=== PATIENT | female | born 1985 | race Caucasian/White ===

== ENCOUNTER 2016-07-20 20:09 | Emergency (ER) | payer MEDICAID ==
[~2016-07-20] VITALS: Ht 162.6 cm; Wt 90.7 kg
[~2016-07-20 20:09] MED LIST: CEFP500T4 PO; CYCL10TA9 PO; DOCU100C37 PO; HYDR-3812 PO; IBUP-1773 PO; NAPR-243 PO; PREN-37 PO
[2016-07-20] MEDS ORDERED: Naproxen (20:29)
[2016-07-20 20:30] LABS: BILIRUBIN,URINE NEGATIVE (NEGATIVE); KETONES,URINE 1+ (NEGATIVE); LEUKOCYTE ESTERASE ,URINE 1+ (NEGATIVE); NITRITE,URINE NEGATIVE (NEGATIVE); PH,URINE 7 (5-9); PROTEIN,URINE NEGATIVE (NEGATIVE); UROBILINOGEN,URINE NORMAL (NORMAL)
[2016-07-20] MEDS ORDERED: KETOROLAC 60 MG/2 ML VIAL IM ONE (21:30)
[2016-07-20] MEDS ORDERED: NITROFURANTOIN 100 MG (MACROBID) CAPSULE PO ONE (21:30)
[2016-07-20] MEDS ORDERED: CYCL10TA9 PO (21:58)
--- NOTE | 2016-07-20 21:59 | ED General ---
General Chief Complaint: General Problems/Pain Stated Complaint: PAIN IN LOWER BACK/HIP BONES/NECK/SHOULDERS Nursing Triage Note: Amb to Ed to report problems with headaches for a couple months then it migrated down to some back pain then into hips. Currently reports dysuria since Saturday. Nursing Sepsis Screen: No Definite Risk Source of Information: Patient Exam Limitations: No Limitations History of Present Illness Time Seen by Provider: 20:15 Initial Comments This 31-year-old woman presents to the emergency room complaining of recurrent headaches for a couple of months and more acutely back ache and dysuria since Saturday. She had been taking naproxen which did help but she hasn't taken any since Saturday. Pain in the back is across the shoulders radiating up into the neck and base of the skull as well as in the lower back radiating into the SI joint regions. She denies any fever. Denies vaginal symptoms or abdominal symptoms. She denies any new or unusual physical activity. 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 Last menstrual period was June 16. Bedside test was negative. Allergies and Home Medications Allergies Coded Allergies: Sulfa (Sulfonamide Antibiotics) (Verified Allergy, Unknown, 11/13/05) penicillin G (Verified Allergy, Unknown, 11/13/05) Home Medications Cyclobenzaprine HCl 10 Mg Tablet, 10 MG PO HS PRN for PAIN-MILD TO MODERATE, #10 Prescribed by: DERICK ROBERTS on 07/20/162157 Nitrofurantoin Monohyd/M-Cryst 100 Mg Capsule, 1 TAB PO BID, #14 Prescribed by: DERICK ROBERTS on 07/20/160 [Naproxen] , (Reported) Constitutional: no symptoms reported EENTM: no symptoms reported Respiratory: no symptoms reported Cardiovascular: no symptoms reported Gastrointestinal: no symptoms reported Genitourinary: see HPI : No Musculoskeletal: see HPI Skin: no symptoms reported Psychiatric/Neurological: See HPI Hematologic/Lymphatic: No Symptoms Reported Past Wobmktd-Rcbwpb-Fphazg Hx Patient Social History Alcohol Use: Occasionally Uses Recreational Drug Use: No Smoking Status: Never a Smoker Former Smoker/When Quit: Mar 28, 2014 Recent Foreign Travel: No Contact w/Someone Who Travel: No Recent Infectious Disease Expo: No Recent Hopitalizations: No Immunizations Up To Date Tetanus Booster (TDap): Unknown PED Vaccines UTD: Yes Seasonal Allergies Seasonal Allergies: Yes Surgeries HX Surgeries: Yes Surgeries: Section, Orthopedic (knee arthroscopy) Respiratory Hx Respiratory Disorders: No Cardiovascular Hx Cardiac Disorders: No Neurological Hx Neurological Disorders: No Reproductive System Hx Reproductive Disorders: No Female Reproductive Disorders: Denies Genitourinary Hx Genitourinary Disorders: No Gastrointestinal Hx Gastrointestinal Disorders: No Musculoskeletal Hx Musculoskeletal Disorders: No Endocrine Hx Endocrine Disorders: No HEENT HX ENT Disorders: No Cancer Hx Cancer: No Psychosocial Hx Psychiatric Problems: No Integumentary HX Skin/Integumentary Disorder: No Blood Transfusions Hx Blood Disorders: No Adverse Reaction to a Blood Tr: No Family Medical History Significant Family History: No Pertinent Family Hx Family Medial History: Arthritis 19 MOTHER Hypertension 19 MOTHER Physical Exam Vital Signs Vital Sign - Last 12Hours 07/20/16 20:13 Temp 98.2 Pulse 110 Resp 20 B/P (MAP) 124/79 Pulse Ox 98 O2 Delivery Room Air Capillary Refill : Less Than 3 Seconds General Appearance: No Apparent Distress, WD/WN HEENT: PERRL/EOMI, Normal ENT Inspection, Pharynx Normal Neck: Normal Inspection, Other (bilateral posterior muscle tension and tenderness) Respiratory: Lungs Clear, Normal Breath Sounds, No Accessory Muscle Use, No Respiratory Distress Cardiovascular: Regular Rate, Rhythm, No Edema, No Murmur Gastrointestinal: Normal Bowel Sounds, Soft, Tenderness (mild in the suprapubic region) Extremity: Normal Inspection, No Pedal Edema Neurologic/Psychiatric: Alert, Oriented x3, No Motor/Sensory Deficits, Normal Mood/Affect, wage conciliator II-XII Norm as Tested Skin: Normal Color, Warm/Dry Progress/Results/Core Measures Results/Orders Lab Results Laboratory Tests Test 07/20/16 20:22 Range/Units Urine Color YELLOW Urine Clarity CLEAR Urine pH 7 5-9 Urine Specific [place] 1.010 L 1.016-1.022 Urine Protein NEGATIVE NEGATIVE Urine Glucose (UA) NEGATIVE NEGATIVE Urine Ketones 1+ H NEGATIVE Urine Nitrite NEGATIVE NEGATIVE Urine Bilirubin NEGATIVE NEGATIVE Urine Urobilinogen NORMAL NORMAL MG/DL Urine Leukocyte Esterase 1+ H NEGATIVE Urine RBC (Auto) NEGATIVE NEGATIVE Urine RBC NONE /HPF Urine WBC 2-5 /HPF Urine Squamous Epithelial Cells 5-10 /HPF Urine Crystals NONE /LPF Urine Bacteria FEW H /HPF Urine Casts NONE /LPF Urine Mucus NEGATIVE /LPF Urine Culture Indicated NO My Orders Orders - DERICK HAYWOOD MD Ua Culture If Indicated (07/20/16 20:21) Urine Bedside (07/20/16 20:21) Ketorolac Injection (Toradol Injection) (07/20/16 21:30) Nitrofurantoin Capsule,Macro (Macrobid C (07/20/16 21:30) Urine Culture (07/20/16 21:55) Medications Given in ED Current Medications Medications Dose Ordered Sig/[place] Route Start Time Stop Time Status Last Admin Dose Admin Ketorolac Tromethamine 60 mg ONCE ONCE IM 07/20/16 21:30 07/20/16 21:31 DC 07/20/16 21:30 60 MG Nitrofurantoin Macrocrystals 100 mg ONCE ONCE PO 07/20/16 21:30 07/20/16 21:31 DC 07/20/16 21:29 100 MG Vital Signs/I&O Vital Sign - Last 12Hours 07/20/16 07/20/16 07/20/16 20:13 21:30 22:02 Temp 98.2 98.2 98.2 Pulse 110 90 Resp 20 20 B/P (MAP) 124/79 Pulse Ox 98 98 O2 Delivery Room Air Blood Pressure Mean: 94 Point of Care Testing Urine -Bedside: Negative Progress Note : Progress Note UA showed subtle suggestion of urinary tract infection. Patient was treated with Macrobid. Options were discussed for further workup versus treatment alone for her musculoskeletal complaints. Patient would like to try Toradol. Toradol was administered and didn't improve her symptoms. Discharge instructions were discussed. Departure Impression Impression: Primary Impression: Urinary tract infection Qualified Codes: N39.0 - Urinary tract infection, site not specified Additional Impressions: Backache Qualified Codes: M54.5 - Low back pain Tension headache Disposition: HOME, SELF-CARE Condition: Improved Departure-Patient Inst. Decision time for Depature: 21:56 Referrals: BUDDY SPENCER DO (PCP/Family) Primary Care Physician Patient Instructions: Urinary Tract Infection, Adult (DC) Add. Discharge Instructions: Drink plenty of clear liquids. Complete your antibiotic as prescribed. For pain and muscle tension take naproxen up to 500 mg twice daily as long as the pain lasts. Add Tylenol (acetaminophen) up to 1000 mg every 6 hours as needed for additional pain relief. Return to the ER if symptoms worsen. Follow up with your primary care provider if symptoms are not improving by early next week. You may use the cyclobenzaprine as prescribed for muscle relaxation at bedtime. All discharge instructions reviewed with patient and/or family. Voiced understanding. Scripts Nitrofurantoin Monohyd/M-Cryst (Macrobid 100 mg Capsule) 100 Mg Capsule 1 TAB PO BID, #14 CAP Prov: DERICK HAYWOOD MD 07/20/16 Cyclobenzaprine HCl (Cyclobenzaprine HCl) 10 Mg Tablet 10 MG PO HS Y for PAIN-MILD TO MODERATE, #10 TAB Prov: DERICK HAYWOOD MD 07/20/16 DERICK HAYWOOD MD July 20, 2016 21:59
[2016-07-20] MEDS ORDERED: NITR-65 PO (22:00)
[2016-07-20 22:02] VITALS: BP 124/79
== END 2016-07-20 22:02 | disposition home or self-care (01) ==
LOC: EDUNIT# 20:09 → ER 20:11
DX: N39.0 Urinary tract infection, site not specified (principal); M54.5 Low back pain; G44.209 Tension-type headache, unspecified, not intractable
CPT/HCPCS: 81000; 84703; 87077; 87088; 87186; 96372; 99282

== ENCOUNTER 2018-03-17 23:49 | Emergency (ER) | payer SELFPAY ==
[~2018-03-17] VITALS: Ht 162.6 cm; Wt 90.7 kg
[~2018-03-17 23:49] MED LIST changes: +ACHD5005 PO; -HYDR-3812 PO; +NITR-65 PO; +Naproxen
--- OUTSIDE RECORDS SUMMARY | 2018-03-17 23:56 | XMS REPORT ---
Author Author ALEXANDRIA FOX [facility] Address [address] [place] [address] Care Team Providers Care Panel Beater Name Role Phone FOX, ALEXANDRIA Unavailable PROBLEMS Type Condition ICD9-CM Code [id number] Code Onset Dates Condition Status SNOMED Code Problem Endometriosis of uterus 617.0 Active 60761850 Problem Excessive or frequent menstruation 626.2 Active 491841394 ALLERGIES Substance Reaction Event Type Date Status Penicillin Unknown Drug Allergy Sep, Active Sulfa Drugs Unknown Non Drug Allergy Sep, Active ENCOUNTERS Encounter Location Date Diagnosis [id number], [place] [id number] Sep, Dental caries K02.9 [address] [id number] Sep, [place] [id number] [place] [id number] Sep, Dental examination Z01.[address] [id number] [id number] Feb, Dental examination Z01.20 [id number] [id number] June, test performed, confirmed V72.42 [facility] [id number], [place] [address] May, [facility] [address] [id number] [place] [address] May, [facility] [id number], [place] [address] Dec, [facility] [id number] [place] [address] Dec, [facility] [id number], [place] [address] Nov, [facility] [id number], [place] [address] Nov, [facility] [id number], [place] [address] 16 Oct, 2013 [facility] [id number], [place] [address] 16 Oct, 2013 [facility] [id number], [place] [address] 15 Oct, 2013 [facility] [id number], [place] [address] 15 Oct, 2013 [facility] [id number], [place] [address] Oct, [facility] [address], [place] [address] 04 Oct, 2013 [facility] [id number], [place] [address] 02 Oct, 2013 [facility] [id number] [address] Oct, IMMUNIZATIONS No Known Immunizations SOCIAL HISTORY Never Assessed REASON FOR VISIT extraction PLAN OF CARE Activity Details Follow Up prn Reason:eliazar/hygiene VITAL SIGNS Height 64 in 2016-10-22 Blood pressure systolic 115 mmHg 2016-10-22 Blood pressure diastolic 68 mmHg 2016-10-22 MEDICATIONS No Known Medications RESULTS No Results PROCEDURES Procedure Date Ordered Result Body Site EXTRAC ERUPTED TOOTH/EXPOSED ROOT Oct 22, 2016 INSTRUCTIONS MEDICATIONS ADMINISTERED No Known Medications MEDICAL (GENERAL) HISTORY Type Description Date Surgical History c section 02/08/15 Hospitalization History csection 02/08/15
--- OUTSIDE RECORDS SUMMARY | 2018-03-17 23:56 | XMS REPORT | Continuity of Care Document ---
Author Author [facility] Address Unknown Phone Unavailable Allergies Active Description Code Type Severity Reaction Onset Reported/Identified Relationship to Patient Clinical Status Yes penicillin G [id number] Drug Allergy Unknown N/A 11/13/2005 Yes Sulfa (Sulfonamide Antibiotics) [id number] Drug Allergy Unknown N/A 2005 Medications There is no data. Problems Date Dx Coded Attending Type Code Diagnosis Diagnosed By 09/07/2012 LORETA RUIZ DO Ot 465.9 ACUTE URI NOS 09/07/2012 LORETA RUIZ DO Ot 490 BRONCHITIS NOS 09/07/2012 LORETA RUIZ DO Ot 786.2 COUGH 06/21/2013 LORETA RUIZ DO Ot 847.0 SPRAIN OF NECK 06/21/2013 LORETA RUIZ DO Ot 920 CONTUSION FACE/SCALP/NCK 06/21/2013 LORETA RUIZ DO Ot 959.01 HEAD INJURY, NOS 06/21/2013 LORETA RUIZ DO Ot E000.8 OTHER EXTERNAL CAUSE STATUS 06/21/2013 LORETA RUIZ DO Ot E849.[address] NEC 06/21/2013 LORETA RUIZ DO Ot E908.1 TORNADO 10/27/2013 BERNARDO ARAMBULA MD 626.2 EXCESSIVE OR FREQUENT MENSTRUATION 10/27/2013 MARCELO ABRAMS DDS 626.2 EXCESSIVE OR FREQUENT MENSTRUATION 10/27/2013 BERNARDO ARAMBULA MD 626.2 EXCESSIVE OR FREQUENT MENSTRUATION 01/05/2014 BERNARDO ARAMBULA MD 617.0 ENDOMETRIOSIS OF UTERUS 06/04/2014 BERNARDO ARAMBULA MD Ot 625.9 06/04/2014 BERNARDO ARAMBULA MD Ot 626.2 07/06/2014 BERNARDO ARAMBULA MD Ot 625.9 07/06/2014 BERNARDO ARAMBULA MD Ot 626.2 07/16/2014 TYESHA BRUSH, BERNARDO Barba Ot 625.9 07/16/2014 BERNARDO ARAMBULA MD Ot 626.2 02/03/2015 BERNARDO ARAMBULA MD Ot 625.9 02/03/2015 BERNARDO ARAMBULA MD Ot 626.2 02/07/2015 YUDITH WEEKS DO Ot O34.21 02/07/2015 YUDITH WEEKS DO Ot Z01.818 02/07/2015 YUDITH WEEKS DO Ot Z3A.00 02/11/2015 YUDITH WEEKS DO Ot D62 ACUTE POSTHEMORRHAGIC ANEMIA 02/11/2015 YUDITH WEEKS DO Ot O34.21 MATERNAL CARE FOR SCAR FROM PREVIOUS [place] 02/11/2015 YUDITH WEEKS DO Ot O90.81 ANEMIA OF THE PUERPERIUM 02/11/2015 YUDITH WEEKS DO Ot Z23 ENCOUNTER FOR IMMUNIZATION 02/11/2015 YUDITH WEEKS DO Ot Z37.0 SINGLE LIVE 02/11/2015 YUDITH WEEKS DO Ot Z3A.39 39 WEEKS GESTATION OF 07/20/2016 TYESHA BRUSH, BERNARDO Barba Ot 625.9 FEM GENITAL SYMPTOMS NOS 07/20/2016 TYESHA BRUSH, BERNARDO Barba Ot 626.2 EXCESSIVE MENSTRUATION 07/20/2016 YUDITH WEEKS DO Ot O34.21 MATERNAL CARE FOR SCAR FROM PREVIOUS [place] 07/20/2016 YUDITH WEEKS DO Ot Z01.818 ENCOUNTER FOR OTHER PREPROCEDURAL EXAMIN 07/20/2016 YUDITH WEEKS DO Ot Z3A.00 WEEKS OF GESTATION OF NOT SPEC 07/20/2016 YOBANY BRUSH, DERICK Pandya Ot G44.209 TENSION-TYPE HEADACHE, UNSPECIFIED, NOT 07/20/2016 DERICK HAYWOOD MD, Ot M54.5 LOW BACK PAIN 07/20/2016 DERICK HAYWOOD MD, Ot N39.0 URINARY TRACT INFECTION, SITE NOT SPECIF Procedures Code [place] [address] ROUTINE VENIPUNCTURE 10/27/2013 71996 US PELVIC COMPL (REFLEX CPT - 68832) 10/27/2013 26662 TSH 10/27/2013 48918 CBC 10/27/2013 20391 A1C (IN-HOUSE) 10/27/2013 OBSTETRIC YUDITH WEEKS 01/05/2014 26G89G8 EXTRACTION OF POC, LOW CERVICAL, OPEN AP 02/08/2015 Results Test Result Range Complete urinalysis with reflex to culture - 07/20/16 20:22 Urine color determination YELLOW NRG Urine clarity determination CLEAR NRG Urine pH measurement by test strip 7 5-9 Specific gravity of urine by test strip 1.010 1.016- 1.022 Urine protein assay by test strip, semi-quantitative NEGATIVE NEGATIVE Urine glucose detection by automated test strip NEGATIVE NEGATIVE Erythrocytes detection in urine sediment by light microscopy NEGATIVE NEGATIVE Urine ketones detection by automated test strip 1+ NEGATIVE Urine nitrite detection by test strip NEGATIVE NEGATIVE Urine total bilirubin detection by test strip NEGATIVE NEGATIVE Urine urobilinogen measurement by automated test strip (mass/volume) NORMAL NORMAL Urine leukocyte esterase detection by dipstick 1+ NEGATIVE Automated urine sediment erythrocyte count by microscopy (number/high power field) NONE NRG Automated urine sediment leukocyte count by microscopy (number/high power field ) [HPF] NRG Bacteria detection in urine sediment by light microscopy FEW NRG Squamous epithelial cells detection in urine sediment by light microscopy 5-10 NRG Crystals detection in urine sediment by light microscopy NONE NRG Casts detection in urine sediment by light microscopy NONE NRG Mucus detection in urine sediment by light microscopy NEGATIVE NRG Complete urinalysis with reflex to culture NO NRG Bacterial urine culture - 07/20/16 20:22 Bacterial urine culture [id number] NRG COLONY COUNT 10,000/ML - 100,000/ML NRG FTX;REPORTABLE SENSITIVITY REPORTED 07/22/16 11:30 NRG Bacterial susceptibility panel - 07/20/16 20:22 Gentamicin susceptibility test by minimum inhibitory concentration < = NRG Trimethoprim/sulfamethoxazole susceptibility test by minimum inhibitoryconcentration <= NRG Ampicillin susceptibility test by minimum inhibitory concentration > = NRG Tobramycin susceptibility test by minimum inhibitory concentration < = NRG Cefazolin susceptibility test by minimum inhibitory concentration < = NRG Ceftriaxone susceptibility test by minimum inhibitory concentration <= NRG Ampicillin/sulbactam susceptibility test by minimum inhibitory concentration >= NRG Ciprofloxacin susceptibility test by minimum inhibitory concentration 0.5 NRG Meropenem susceptibility test by minimum inhibitory concentration < = NRG Nitrofurantoin susceptibility test by minimum inhibitory concentration <= NRG Aztreonam susceptibility test by minimum inhibitory concentration < = NRG Extended spectrum beta lactamase (ESBL) producing bacteria susceptibility test by minimum inhibitory concentration - NRG Encounters ACCT No. Visit Date/Time Discharge Status Pt. Type Provider Facility Loc./Unit Complaint [id number] 01/05/2014 09:42:00 01/05/2014 23:59:59 CLS Outpatient BERNARDO ARAMBULA MD [id number] 11/25/2013 08:23:00 11/25/2013 23:59:59 CLS Outpatient MARCELO ABRAMS DDS [id number] 10/27/2013 09:19:00 10/27/2013 23:59:59 CLS Outpatient BERNARDO ARAMBULA MD [id number] 03/06/2017 11:14:00 03/06/2017 23:59:59 CLS Preadmit LARISSA HERBERT DO [facility] RAD Z33.1 [id number] 07/20/2016 20:11:00 07/20/2016 22:02:00 DIS Emergency DERICK HAYWOOD MD [facility] ER PAIN IN LOWER BACK/ HIP BONES/NECK/SHOULDERS [id number] 04/25/2015 13:16:00 04/25/2015 23:59:59 CLS Outpatient JADE CALLOWAY [facility] QUICK [id number] 02/08/2015 07:33:00 02/11/2015 16:10:00 DIS Inpatient YUDITH WEEKS DO [facility] LDRP PREVIOUS SECTION [id number] 02/03/2015 09:15:00 02/03/2015 23:59:59 CLS Outpatient YUDITH WEEKS DO [facility] PREOP PREVIOUS SECTION [id number] 11/03/2013 11:21:00 11/03/2013 23:59:59 CLS Outpatient BERNARDO ARAMBULA MD [facility] RAD PELVIC PAIN,IRREGULAR PERIODS [id number] 06/21/2013 21:24:00 06/21/2013 22:46:00 DIS Emergency LORETA RUIZ DO [facility] ER HEAD INJ;TORNADO VICTIM [id number] 09/07/2012 12:16:00 09/07/2012 15:36:00 DIS Emergency LORETA RUIZ DO [facility] ER UPPER RESPIRATORY
[2018-03-18] MEDS ORDERED: RX-ALBUTEROL INHALER (PROAIR) 8 GM IH STA (00:54)
[2018-03-18] MEDS ORDERED: PRD20T PO (01:23)
--- NOTE | 2018-03-18 01:24 | ED Respiratory ---
General Chief Complaint: Cough/Cold/Flu Symptoms Stated Complaint: CONGESTION,COUGH Nursing Triage Note: AMBULATORY TO ED WITH C/O COUGH FOR A COUPLE OF WEEKS, TROUBLE BREATHING, WHEEZING. C/O HEADACHE. USE OF OTC MUCINEX. Source: patient Exam Limitations: no limitations History of Present Illness Date Seen by Provider: Mar 18, 2018 Time Seen by Provider: 00:45 Initial Comments Patient presents with dry cough, chest congestion, and discomfort with breathing for couple of weeks. She is not febrile. She has not yet been seen for this problem. Allergies and Home Medications Allergies Coded Allergies: Sulfa (Sulfonamide Antibiotics) (Verified Allergy, Unknown, 11/13/05) penicillin G (Verified Allergy, Unknown, 11/13/05) Home Medications Prednisone 20 Mg Tab, 1 TAB PO DAILY Prescribed by: DERICK ROBERTS on 03/18/18 0123 Patient Home Medication List Home Medication List Reviewed: Yes Review of Systems Review of Systems Constitutional: no symptoms reported EENTM: no symptoms reported Respiratory: see HPI Cardiovascular: no symptoms reported Gastrointestinal: no symptoms reported Genitourinary: no symptoms reported Musculoskeletal: no symptoms reported Skin: no symptoms reported Psychiatric/Neurological: No Symptoms Reported Hematologic/Lymphatic: No Symptoms Reported Past Gqskrmq-Zvbrwm-Glcovx Hx Patient Social History Alcohol Use: Occasionally Uses Recreational Drug Use: No Smoking Status: Former Smoker Recent Foreign Travel: No Contact w/Someone Who Travel: No Recent Infectious Disease Expo: No Recent Hopitalizations: No Immunizations Up To Date Tetanus Booster (TDap): Unknown PED Vaccines UTD: Yes Seasonal Allergies Seasonal Allergies: Yes Past Medical History Surgeries: Yes ( x 3; knee scope,sinus) Section, Orthopedic Respiratory: No Cardiac: No Neurological: No Reproductive Disorders: No Female Reproductive Disorders: Denies Genitourinary: No Gastrointestinal: No Musculoskeletal: No Endocrine: No HEENT: No Cancer: No Psychosocial: No Integumentary: No Blood Disorders: No Adverse Reaction/Blood Tranf: No Family Medical History Arthritis 19 MOTHER Hypertension 19 MOTHER No Pertinent Family Hx Physical Exam Vital Signs - First Documented 03/18/18 03/18/18 00:23 01:35 Temp 99.6 Pulse 102 Resp 22 B/P (MAP) 119/69 (86) Pulse Ox 99 O2 Delivery Room Air Capillary Refill : Less Than 3 Seconds Height: 5'4.00" Weight: 200lbs. oz. 90.284442yi; 35.01 BMI Method:Stated General Appearance: WD/WN, no apparent distress HEENT: PERRL/EOMI, normal ENT inspection Neck: normal inspection Respiratory: no respiratory distress, no accessory muscle use, wheezing, other (wheezing and prolonged expiratory phase with forced expiration) Cardiovascular: regular rate, rhythm, no edema, no murmur Extremities: normal inspection, no pedal edema Neurologic/Psychiatric: ladle puller II-XII nml as tested, no motor/sensory deficits, alert, normal mood/affect, oriented x 3 Skin: normal color, warm/dry Progress/Results/Core Measures Suspected Sepsis Recent Fever Within 48 Hours: Yes Infection Criteria Present: Suspected New Infection New/Unexplained Altered Menta: No Sepsis Screen: Possible Sepsis Risk SIRS Temperature:99.6 Pulse: 102 Respiratory Rate: 22 Blood Pressure 119 /69 Mean: 86 Results/Orders My Orders Orders - DERICK HAYWOOD MD Rx-Albuterol Inhaler (Rx-Proair) (03/18/18 00:54) Rt Request For Service (03/18/18 00:54) Vital Signs/I&O 03/18/18 03/18/18 03/18/18 03/18/18 00:23 00:23 01:23 01:35 Temp 99.6 99.6 Pulse 102 99 Resp 22 B/P (MAP) 119/69 (86) 120/70 (87) Pulse Ox 99 O2 Delivery Room Air Room Air Room Air Capillary Refill : Less Than 3 Seconds Blood Pressure Mean: 86 Progress Note : Progress Note Albuterol inhaler was dispensed and RT provided education and a spacer. Prednisone was prescribed for further treatment of bronchitis. Patient was offered chest x-ray but declined due to lack of insurance. Departure Impression Primary Impression: Acute bronchitis Qualified Codes: J20.9 - Acute bronchitis, unspecified Disposition: HOME, SELF-CARE Condition: Improved Departure-Patient Inst. Decision time for Depature: 00:50 Referrals: NO,LOCAL PHYSICIAN (PCP/Family) Primary Care Physician Patient Instructions: Acute Bronchitis, Adult (DC) Add. Discharge Instructions: Use your inhaler up to 2 puffs every 2 hours as needed for shortness of breath and wheezing. Complete your prednisone prescription as prescribed. Follow-up with your primary care provider if not improving by the time that your prednisone course is complete. Return to care if you have worsening symptoms. Avoid any inhaled irritants such as cigarette smoke. All discharge instructions reviewed with patient and/or family. Voiced understanding. Scripts Prednisone (Prednisone) 20 Mg Tab 1 TAB PO DAILY, #5 TAB Prov: DERICK HAYWOOD MD 03/18/18 DERICK HAYWOOD MD Mar 18, 2018 01:23
[2018-03-18 01:35] VITALS: BP 120/70
== END 2018-03-18 01:37 | disposition home or self-care (01) ==
LOC: EDUNIT# 23:49 → ER 23:52
DX: J20.9 Acute bronchitis, unspecified (principal); Z88.0 Allergy status to penicillin; Z88.2 Allergy status to sulfonamides; Z79.52 Long term (current) use of systemic steroids; Z87.891 Personal history of nicotine dependence; Z98.890 Other specified postprocedural states
CPT/HCPCS: 94640; 94664; 99283

== ENCOUNTER 2022-04-17 23:04 | Emergency (ER) | payer SELFPAY ==
[~2022-04-17] VITALS: Ht 162.5 cm; Wt 99.7 kg
[~2022-04-17 23:04] MED LIST changes: +CYCL10TA25 PO; +PRD20T PO
[2022-04-17] MEDS ORDERED: NITROGLYCERIN 0.4 MG SL TABS BTL 25'S SL PRN (23:30)
[2022-04-17] MEDS ORDERED: ASPIRIN 81 MG CHEW (CHILDREN'S ASA) PO ONE (23:30)
--- NOTE | 2022-04-17 23:31 | ED Chest Pain ---
General Chief Complaint: Chest Pain Stated Complaint: CP Source: patient History of Present Illness Date Seen by Provider: Apr 17, 2022 Time Seen by Provider: 23:15 Initial Comments PT ARRIVES VIA POV FROM HOME C/O CHEST PAIN SINCE SHE GOT OFF WORK AT [employer] ( WORKS A [employer]) PAIN IS IN CENTER AND JUST LEFT OF CENTER OF CHEST, RADIATES TO LEFT SHOULDER AND UPPER BACK PAIN IS 10/10 AT WORST, 4/10 NOW WHILE LAYING STILL WORSE WITH ANY MOVEMENTS OF ANY KIND, ESPECIALLY RAISING LEFT ARM + SHORTNESS OF BREATH Allergies and Home Medications Allergies Coded Allergies: Sulfa (Sulfonamide Antibiotics) (Verified Allergy, Unknown, 11/13/05) penicillin G (Verified Allergy, Unknown, 11/13/05) Patient Home Medication List Prednisone (Prednisone) 20 Mg Tab, 1 TAB PO DAILY Prescribed by: DERICK ROBERTS on 03/18/18 0123 Past Kdegvou-Kfkedj-Ovtera Hx Immunizations Up To Date Tetanus Booster (TDap): Unknown PED Vaccines UTD: Yes Seasonal Allergies Seasonal Allergies: Yes Past Medical History Surgeries: Yes ( x 3; knee scope,sinus) Section, Orthopedic Respiratory: No Cardiac: No Neurological: No Reproductive Disorders: No Female Reproductive Disorders: Denies Genitourinary: No Gastrointestinal: No Musculoskeletal: No Endocrine: No HEENT: No Cancer: No Psychosocial: No Integumentary: No Blood Disorders: No Adverse Reaction/Blood Tranf: No Family Medical History Arthritis 19 MOTHER Hypertension 19 MOTHER No Pertinent Family Hx Physical Exam Vital Signs Vital Signs - First Documented 04/17/22 23:11 Temp 36.8 Pulse 96 Resp 8 B/P (MAP) 117/82 (94) Pulse Ox 98 O2 Delivery Room Air Capillary Refill : Height, Weight, BMI Height: 5'4.00" Weight: 200lbs. oz. 90.484360hg; 35.01 BMI Method:Stated Progress/Results/Core Measures Results/Orders Lab Results Laboratory Tests Test 04/17/22 23:32 04/17/22 23:35 04/17/22 23:38 04/17/22 23:50 Range/Units Sodium Level 139 135-145 MMOL/L Potassium Level 3.8 3.6-5.0 MMOL/L Chloride Level 106 98-107 MMOL/L Carbon Dioxide Level 19 L 21-32 MMOL/L Anion Gap 14 5-14 MMOL/L Blood Urea Nitrogen 10 7-18 MG/DL Creatinine 0.81 0.60-1.30 MG/DL Estimat Glomerular Filtration Rate 97 BUN/Creatinine Ratio 12 Glucose Level 92 70-105 MG/DL Calcium Level 9.4 8.5-10.1 MG/DL Corrected Calcium 9.3 8.5-10.1 MG/DL Magnesium Level 2.2 1.6-2.4 MG/DL Total Bilirubin 0.6 0.1-1.0 MG/DL Aspartate Amino Transf (AST/SGOT) 19 5-34 U/L Alanine Aminotransferase (ALT/SGPT) 21 0-55 U/L Alkaline Phosphatase 100 40-136 U/L Total Creatine Kinase 80 29-168 U/L Creatine Kinase MB 0.8 <6.6 NG/ML Myoglobin 28.0 10.0-92.0 NG/ML Troponin I < 0.028 <0.028 NG/ML C-Reactive Protein High Sensitivity 4.13 H 0.00-0.50 MG/DL Total Protein 7.3 6.4-8.2 GM/DL Albumin 4.1 3.2-4.5 GM/DL Amylase Level 52 25-125 U/L Lipase 17 8-78 U/L Influenza Type A (RT-PCR) Not Detected Not Detecte Influenza Type B (RT-PCR) Not Detected Not Detecte SARS-CoV-2 RNA (RT-PCR) Not Detected Not Detecte Urine Color YELLOW Urine Clarity CLEAR Urine pH 6.0 5-9 Urine Specific [place] 1.010 L 1.016-1.022 Urine Protein NEGATIVE NEGATIVE Urine Glucose (UA) NEGATIVE NEGATIVE Urine Ketones NEGATIVE NEGATIVE Urine Nitrite NEGATIVE NEGATIVE Urine Bilirubin NEGATIVE NEGATIVE Urine Urobilinogen 0.2 < = 1.0 MG/DL Urine Leukocyte Esterase NEGATIVE NEGATIVE Urine RBC (Auto) NEGATIVE NEGATIVE Urine RBC NONE /HPF Urine WBC NONE /HPF Urine Squamous Epithelial Cells 5-10 /HPF Urine Crystals NONE /LPF Urine Bacteria NEGATIVE /HPF Urine Casts NONE /LPF Urine Mucus NEGATIVE /LPF Urine Culture Indicated NO White Blood Count 8.9 4.3-11.0 10^3/uL Red Blood Count 4.45 3.80-5.11 10^6/uL Hemoglobin 13.5 11.5-16.0 g/dL Hematocrit 39 35-52 % Mean Corpuscular Volume 88 80-99 fL Mean Corpuscular Hemoglobin 30 25-34 pg Mean Corpuscular Hemoglobin Concent 34 32-36 g/dL Red Cell Distribution Width 12.5 10.0-14.5 % Platelet Count 259 130-400 10^3/uL Mean Platelet Volume 10.1 9.0-12.2 fL Immature Granulocyte % (Auto) 0 % Neutrophils (%) (Auto) 61 42-75 % Lymphocytes (%) (Auto) 27 12-44 % Monocytes (%) (Auto) 9 0-12 % Eosinophils (%) (Auto) 3 0-10 % Basophils (%) (Auto) 1 0-10 % Neutrophils # (Auto) 5.4 1.8-7.8 10^3/uL Lymphocytes # (Auto) 2.4 1.0-4.0 10^3/uL Monocytes # (Auto) 0.8 0.0-1.0 10^3/uL Eosinophils # (Auto) 0.3 0.0-0.3 10^3/uL Basophils # (Auto) 0.0 0.0-0.1 10^3/uL Immature Granulocyte # (Auto) 0.0 0.0-0.1 10^3/uL Erythrocyte Sedimentation Rate 16 0-20 MM/HR Prothrombin Time 12.5 12.2-14.7 SEC INR Comment 0.9 0.8-1.4 Activated Partial Thromboplast Time 29 24-35 SEC D-Dimer 1.10 H 0.00-0.49 UG/ML Serum Test, Qualitative NEGATIVE NEGATIVE My Orders Orders - LORETA RUIZ DO Ed Iv/Invasive Line Start (04/17/22 23:19) Ekg Tracing (04/17/22 23:19) O2 (04/17/22 23:19) Monitor-Rhythm Ecg Trace Only (04/17/22 23:19) Amylase (04/17/22 23:19) Cbc With Automated Diff (04/17/22 23:19) Comprehensive Metabolic Panel (04/17/22 23:19) Creatine Kinase (04/17/22 23:19) Creatine Kinase Mb (04/17/22 23:19) Hs C Reactive Protein (04/17/22 23:19) Fibrin Degradation Products (04/17/22 23:19) Hcg,Qualitative Serum (04/17/22 23:19) Lipase (04/17/22 23:19) Magnesium (04/17/22 23:19) Protime With Inr (04/17/22 23:19) Partial Thromboplastin Time (04/17/22 23:19) Ua Culture If Indicated (04/17/22 23:19) Erythrocyte Sedimentation Rate (04/17/22 23:19) Myoglobin Serum (04/17/22 23:19) Troponin I Foster (04/17/22 23:19) Chest 1 View, Ap/Pa Only (04/17/22 23:19) Ed Iv/Invasive Line Start (04/17/22 23:19) Nitroglycerin 0.4 Mg Btl 25's (Nitrostat (04/17/22 23:30) Aspirin Chewable Tablet (Baby Aspirin Ch (04/17/22 23:30) Covid 19 Inhouse Test (04/17/22 23:27) Influenza A And B By Pcr (04/17/22 23:27) Isolation Central Supply Req (04/17/22 23:27) Ct Maritza Chest/Noang Abd-Pelv W (04/18/22 00:44) Medications Given in ED Current Medications Medications Dose Ordered Sig/[place] Route Start Time Stop Time Status Last Admin Dose Admin Aspirin 324 mg ONCE ONCE PO 04/17/22 23:30 04/17/22 23:31 DC 04/17/22 23:31 324 MG Nitroglycerin 0.4 mg UD PRN SL 04/17/22 23:30 04/17/22 23:31 0.4 MG Vital Signs/I&O 04/17/22 23:11 Temp 36.8 Pulse 96 Resp 8 B/P (MAP) 117/82 (94) Pulse Ox 98 O2 Delivery Room Air Progress Progress Note : Progress Note PPE WORN COVID AND FLU TESTING DONE GIVEN: -IV FLUIDS -ASPIRIN Departure Departure-Patient Inst. Referrals: NO,LOCAL PHYSICIAN (PCP/Family) Primary Care Physician LORETA RUIZ DO Apr 17, 2022 23:31
[2022-04-17 23:47] LABS: BILIRUBIN,URINE NEGATIVE (NEGATIVE); CLARITY,URINE CLEAR; COLOR,URINE YELLOW; GLUCOSE, URINE (UA) NEGATIVE (NEGATIVE); KETONES,URINE NEGATIVE (NEGATIVE); LEUKOCYTE ESTERASE ,URINE NEGATIVE (NEGATIVE); NITRITE,URINE NEGATIVE (NEGATIVE); PROTEIN,URINE NEGATIVE (NEGATIVE)
[2022-04-18 00:12] LABS: BASOPHILS % (AUTO) 1 % (0-10); EOSINOPHILS # (AUTO) 0.3 10^3/uL (0.0-0.3); EOSINOPHILS % (AUTO) 3 % (0-10); HEMATOCRIT 39 % (35-52); HEMOGLOBIN 13.5 g/dL (11.5-16.0); LYMPHOCYTES # (AUTO) 2.4 10^3/uL (1.0-4.0); LYMPHOCYTES % (AUTO) 27 % (12-44); MEAN CORPUSCULAR HEMOGLOBIN 30 pg (25-34); MEAN CORPUSCULAR HGB CONC 34 g/dL (32-36); MEAN CORPUSCULAR VOLUME 88 fL (80-99); MEAN PLATELET VOLUME 10.1 fL (9.0-12.2); MONOCYTES # (AUTO) 0.8 10^3/uL (0.0-1.0); MONOCYTES % (AUTO) 9 % (0-12); NEUTROPHILS # (AUTO) 5.4 10^3/uL (1.8-7.8); NEUTROPHILS % (AUTO) 61 % (42-75); PLATELET COUNT 259 10^3/uL (130-400); WHITE BLOOD COUNT 8.9 10^3/uL (4.3-11.0)
[2022-04-18 00:12] LABS: ALANINE AMINOTRANSFERASE 21 U/L (0-55); ALBUMIN 4.1 GM/DL (3.2-4.5); ALKALINE PHOSPHATASE 100 U/L (40-136); AMYLASE 52 U/L (25-125); BILIRUBIN,TOTAL 0.6 MG/DL (0.1-1.0); BUN/CREATININE RATIO 12; CALCIUM 9.4 MG/DL (8.5-10.1); CARBON DIOXIDE 19 MMOL/L (21-32); CHLORIDE 106 MMOL/L (98-107); CREATINE KINASE 80 U/L (29-168); CREATININE SERUM 0.81 MG/DL (0.60-1.30); GFR ESTIMATED 97; GLUCOSE 92 MG/DL (70-105); LIPASE 17 U/L (8-78); MAGNESIUM 2.2 MG/DL (1.6-2.4); POTASSIUM 3.8 MMOL/L (3.6-5.0); SODIUM 139 MMOL/L (135-145); TOTAL PROTEIN 7.3 GM/DL (6.4-8.2)
[2022-04-18 00:13] LABS: BACTERIA,URINE NEGATIVE /HPF
[2022-04-18 00:17] LABS: CREATINE KINASE MB 0.8 NG/ML (<6.6)
[2022-04-18 00:24] LABS: FIBRIN DEGRADATION PRODUCTS 1.1 UG/ML (0.00-0.49); INR 0.9 (0.8-1.4); PROTHROMBIN TIME PATIENT 12.5 SEC (12.2-14.7)
[2022-04-18 00:25] LABS: ERYTHROCYTE SEDIMENTATION RATE 16 MM/HR (0-20)
[2022-04-18 02:37] VITALS: BP 113/79
[2022-04-18] MEDS ORDERED: IOHEXOL 350 MG/ML 100 ML (OMNIPAQUE 350) VIAL IV ONE (03:00)
[2022-04-18] MEDS ORDERED: HOLD METFORMIN - RECEIVED CONTRAST 20 ML VIAL IV SCH (03:00)
[2022-04-18] MEDS ORDERED: NS 100 ML (IVPB) BAG IV ONE (03:00)
--- NOTE | 2022-04-18 06:51 | Diagnostic Imaging Report ---
INDICATION: Chest pain. EXAMINATION: Chest 04/17/2022. FINDINGS: The cardiomediastinal silhouette is unremarkable. The pulmonary vasculature is within normal limits. The lungs and pleural spaces are clear. IMPRESSION: No evidence of an acute cardiopulmonary process. Dictated by: Dictated on workstation # [id number]
--- NOTE | 2022-04-18 06:58 | Diagnostic Imaging Report ---
INDICATION: CP, BACK PAIN CTA chest, abdomen and pelvis Thin axial sections through the chest, abdomen and pelvis are obtained following intravenous contrast bolus. Multiplanar MIP images were reconstructed and reviewed. All CT scans use one or more of the following dose optimizing techniques: automated exposure control, MA and/or KvP adjustment based on patient size and exam type or iterative reconstruction. INDICATION: Chest pain and back pain. EXAMINATION: CT angiogram of the chest with a CT of the abdomen and pelvis 04/18/2022. COMPARISONS: None FINDINGS: CHEST: The thoracic aorta is grossly unremarkable. There are no central or proximal segmental pulmonary emboli. No mediastinal or hilar adenopathy. No pericardial or pleural effusions. Lungs clear. IMPRESSION: 1. Unremarkable CTA of the chest with no pulmonary emboli appreciated. CT abdomen and pelvis: The liver and spleen unremarkable. Gallbladder, adrenal glands and pancreas unremarkable. Subcentimeter cystic lesions in the kidneys too small for characterization. There is no ascites. No free air. No focal inflammation change about the bowel loops. The appendix is not seen but there is no inflammatory change in the right lower quadrant. No free air. No free fluid. No acute osseous abnormality. IMPRESSION: 1. Incidental findings with no acute process in the abdomen or pelvis. Findings agree with the preliminary report. Dictated by: Dictated on workstation # [id number]
== END 2022-04-18 02:37 | disposition home or self-care (01) ==
LOC: EDUNIT# 23:04 → ER 23:07
DX: R07.9 Chest pain, unspecified (principal); Z20.822 Contact with and (suspected) exposure to COVID-19
CPT/HCPCS: 36415; 71045; 71275; 74177; 80053; 81000; 82150; 82550; 82553; 83690; 83735; 83874; 83880; 84484; 84703; 85025; 85379; 85610; 85652; 85730; 86141; 87636; 93005; 93041